=== PATIENT | female | born 1990 | race Caucasian/White ===

== ENCOUNTER → 2017-09-30 11:52 | Outpatient (CLI) | payer MEDICAID, SELFPAY ==
[2017-10-05 10:50] LABS: HPV Reflexed? NOT INDICATED
== END ==
PROVIDERS: Visit Provider Obstetrics & Gynecology
DX: Z12.4 Encounter for screening for malignant neoplasm of cervix (principal)
CPT/HCPCS: 88175; G0145

== ENCOUNTER → 2018-04-14 12:09 | Outpatient (CLI) | payer MEDICAID, SELFPAY ==
[2015-07-13 12:47] VITALS: BMI 25.6
[2018-04-14 16:51] LABS: Chlamydia Trachomatis by PCR Negative (Negative); Neisserai gonorrhoeae by PCR Negative (Negative); Probe Check PASS; Sample Adequacy Control PASS; Specimen Processing Control PASS
== END ==
PROVIDERS: Visit Provider Obstetrics & Gynecology
DX: Z11.3 Encounter for screening for infections with a predominantly sexual mode of transmission (principal)
CPT/HCPCS: 87491; 87591

== ENCOUNTER → 2018-04-28 10:20 | Outpatient (CLI) | payer MEDICAID, SELFPAY ==
[2015-07-13 12:47] VITALS: BMI 25.6
[2018-04-28 10:47] LABS: Absolute Lymphocyte Count 1.85 X10^3/ul (0.83-4.51); Absolute Neutrophil Count 5.9 X10^3/uL (2.0-7.7); Basophil# 0.01 X10^3/uL; Basophil% 0.1 % (0-1); Color, Urine Yellow (Yellow); Eosinophil# 0.06 X10^3/uL; Eosinophils% 0.7 % (0-5); Glucose, Dipstick Normal (Normal); Hematocrit 38.3 % (37-47); Hemoglobin 12.7 g/dl (12.0-15.0); Ketone-Dipstick Negative (Negative); Leukocyte Esterase-Dipstick Negative /ul (Negative); Lymphocyte # 1.85 X10^3/ul (4.0); Lymphocyte % 21.9 % (19-41); Mean Corp Hgb Conc 33.2 g/gl (32-36); Mean Corpuscular Hgb 28.2 pg (27.0-32.0); Mean Corpuscular Volume 84.9 fL (81-99); Mean Platelet Vol. 10.4 fl (6.2-12.0); Monocyte# 0.59 X10^3/uL; Neutrophil # 5.93 X10^3/uL (2.7-7.7); Neutrophil % 70.2 % (47-70); Nitrite-Dipstick Negative (Negative); Occult Blood-Urine Negative /ul (Negative); Platelet Count 267 K/mm3 (150-450); Protein-Dipstick Negative (Negative); RBC Distribution Width CV 14.5 % (11.6-14.6); RBC Distribution Width SD 45.4 fl (35.1-43.9); Red Blood Count 4.51 M/mm3 (4.2-5.4); Specific Gravity, Urine 1.005 (1.002-1.030); Urine Bilirubin Dipstick Negative (Negative); Urine Clarity Clear (Clear); Urine Urobilinogen Normal (Normal); White Blood Count 8.5 K/mm3 (4.4-11.0)
[2018-04-28 10:54] LABS: POSITIVE COUNT NO; POSITIVE DIFFERENTIAL NO; POSITIVE MORPHOLOGY NO
[2018-04-28 11:26] LABS: Thyroid Stim Hormone (TSH) 1.01 uIU/mL (0.358-3.74)
[2018-04-28 13:20] LABS: HIV - WCH Non-Reactive (Nonreactive); Rubella IgG 22.2 IU/mL
[2018-04-29 01:11] LABS: Prenatal RPR NONREACTIVE (NONREACTIVE)
[2018-04-29 11:12] LABS: HEPATITIS B SURFACE AG Negative (Negative); Hep C Antibodies <0.1 s/co ratio (0.0-0.9)
== END ==
PROVIDERS: Visit Provider Obstetrics & Gynecology
DX: Z34.81 Encounter for supervision of other normal pregnancy, first trimester (principal)
CPT/HCPCS: 36415; 81002; 84443; 85025; 86703; 86762; 86803; 87340

== ENCOUNTER → 2018-09-09 10:30 | Outpatient (CLI) | payer MEDICAID, SELFPAY ==
[2018-09-09 10:42] LABS: Hematocrit 34.5 % (37-47); Hemoglobin 11.6 g/dl (12.0-15.0); Mean Corp Hgb Conc 33.6 g/gl (32-36); Mean Corpuscular Hgb 29.9 pg (27.0-32.0); Mean Corpuscular Volume 88.9 fL (81-99); Mean Platelet Vol. 10.2 fl (6.2-12.0); Platelet Count 217 K/mm3 (150-450); RBC Distribution Width CV 13.2 % (11.6-14.6); RBC Distribution Width SD 42.8 fl (35.1-43.9); Red Blood Count 3.88 M/mm3 (4.2-5.4); White Blood Count 9.1 K/mm3 (4.4-11.0)
[2018-09-09 10:43] LABS: Scan Indicated on CBC? Y/N NO
[2018-09-09 11:05] LABS: Glucose Challenge Gest 1H 50g 92 mg/dL (70-140)
== END ==
PROVIDERS: Visit Provider Obstetrics & Gynecology
DX: Z34.83 Encounter for supervision of other normal pregnancy, third trimester (principal)
CPT/HCPCS: 36415; 82950; 85027; 86850

== ENCOUNTER → 2018-11-04 14:51 | Outpatient (CLI) | payer MEDICAID, SELFPAY ==
[2015-07-13 12:47] VITALS: BMI 25.6
== END ==
PROVIDERS: Visit Provider Obstetrics & Gynecology
DX: Z36.85 Encounter for antenatal screening for Streptococcus B (principal)
CPT/HCPCS: 87081

== ENCOUNTER 2018-11-26 00:35 | Inpatient (IN) | payer MEDICAID, SELFPAY ==
[2018-11-26 01:00] VITALS: BMI 27.7
[2018-11-26 01:33] LABS: Absolute Neutrophil Count 7.1 X10^3/uL (2.0-7.7); Basophil# 0.02 X10^3/uL; Basophil% 0.2 % (0-1); Eosinophil# 0.09 X10^3/uL; Eosinophils% 0.8 % (0-5); Hematocrit 37.7 % (37-47); Hemoglobin 13.1 g/dL (12.0-15.0); Lymphocyte % 25.5 % (19-41); Mean Corp Hgb Conc 34.7 g/dL (32-36); Mean Corpuscular Hgb 31.3 pg (27.0-32.0); Mean Platelet Vol. 11.7 fl (6.2-12.0); Monocyte# 0.64 X10^3/uL; NRBC Flagged by Analyzer 0 % (0-5); Neutrophil # 7.11 X10^3/uL (2.7-7.7); Neutrophil % 67.2 % (47-70); Platelet Count 204 K/mm3 (150-450); RBC Distribution Width CV 12.4 % (11.6-14.6); RBC Distribution Width SD 40.3 fl (35.1-43.9); Red Blood Count 4.19 M/mm3 (4.2-5.4); White Blood Count 10.6 K/mm3 (4.4-11.0)
[2018-11-26] MEDS: Oxytocin 30 units/NS 500 ml 30 UNITS/500 ML IV.SOLN 334 UNITS IV (02:30)
--- NOTE | 2018-11-26 02:47 | PCM.OPRPT ---
Vaginal Delivery Maternal Presentation: Active Labor Amniotic Membrane Rupture Type: Artificial Amniotic Fluid Description: Clear Final GEE: 11/30/18 Final GEE Source: US <20 weeks Gestational age: 39 Weeks and 3 Days Date of Procedure: 11/26/18 Pre-Operative Diagnosis: IUP Post-Operative Diagnosis: IUP Surgery/ Procedure Performed: Spontaneous Vaginal Delivery Type of Anesthesia: None Description of Procedure: Spontaneous vaginal delivery of a viable male with Apgars of 8/9 from an occiput anterior presentation with clear amniotic fluid and normal three-vessel placenta. No episiotomy or lacerations. Sponges okay. Delivery physician: Ino Plata MD. Presentation: Vertex Placental Delivery Description: Spontaneous Placenta Disposition: [facility] Cord Vessel Description: 3 Vessels Cord Entanglement: None Estimated Blood Loss: 250 cc Infant A gender: Male (1 minute): 8 (5 minute): 9 Episiotomy Description: None Laceration: None Medications given after delivery: IV Pitocin Complications: None
--- NOTE | 2018-11-26 02:49 | DCINST_ITS ---
Discharge Diet: No Restrictions Discharge Activity: May Shower, May Take a Tub Bath May resume sexual activity in: 4-6 weeks Additional Activity Instructions:: Nothing in the vagina for 4-6 weeks. You may return to work/school in 6 weeks. Call your doctor if you observe: Fever of 101 or Higher, Inability to urinate, Inability to have a bowel movement, Using more than one pad per hour Additional Instructions: If you experience any of the following, contact your healthcare provider. * Bleeding that soaks a pad every hour for 2 hours * Unrelieved incision or abdominal pain * Swelling, redness, discharge or bleeding from your incision or episiotomy site * Your incision begins to separate * Problems urinating (including inability to urinate or burning while urinating). * Visual changes * Severe headache * Flu-like symptoms * Pain or redness in one of both of your breasts * Pain, warmth, tenderness or swelling in your legs, especially the calf area * Frequent nausea and vomiting * Symptoms of depression or anxiety If you experience any of the following, call 911 or go to the nearest Emergency Room. * Chest pain * Problems breathing * Seizure activity * Partial or complete paralysis of a body part, slurred speech, weakness or drooping of the face, or a sudden inability to walk or hold your balance Allergies/Adverse Reactions: Allergies amoxicillin Allergy (Verified 11/26/18 01:01) Hives Sulfa (Sulfonamide Antibiotics) Allergy (Verified 11/26/18 01:01) Hives Medications to take at Discharge [id number]/Iron Fum/Folic/Docusate [ 19 Tablet] 1 each PO DAILY 04/12/13 Naproxen [Naprosyn] 1 - 2 tab PO Q8H PRN PRN #40 tablet 07/13/15 Senna/Docusate Sodium [Senokot-S] 1 - 2 tablet PO DAILY PRN PRN #60 tablet 07/13/15 Please Follow Up With: Palma Wang MD - [phone] When: Call to make an appointment with your doctor in 6 weeks. Primary Care Physician: Care Physician,No Primary [Primary Care Provider] - Test Results: Test results from this visit will be discussed in further detail at your follow- up appointment, if applicable.
[2018-11-26 04:35] VITALS: BP 135/77; PULSE 82; RESP 16; TEMP 36.9; O2SAT 98
[2018-11-26] MEDS: Ibuprofen 600 MG Tablet PO ×3 (06:56→21:06)
[2018-11-26 08:00] VITALS: BP 118/70; PULSE 80; RESP 17; TEMP 36.7; O2SAT 99
[2018-11-26 11:48] VITALS: BP 116/60; PULSE 78; RESP 17; TEMP 36.6; O2SAT 99
[2018-11-26 16:00] VITALS: BP 120/70; PULSE 74; RESP 17; TEMP 36.7; O2SAT 98
[2018-11-26 20:00] VITALS: BP 121/72; PULSE 73; RESP 16; TEMP 36.7
[2018-11-27 01:30] VITALS: BP 115/61; PULSE 67; RESP 16; TEMP 36.8
[2018-11-27 09:09] VITALS: BP 117/68; PULSE 78; RESP 16; TEMP 36.6; O2SAT 99
[2018-11-27] MEDS: Ibuprofen 600 MG Tablet PO (09:13)
--- NOTE | 2018-11-27 11:31 | PCM.PN.OB ---
Subjective: Patient without complaints. Breast-feeding going well. Ready to go home today. - Physical Exam Vital Signs Temp Pulse Resp BP Pulse Ox 97.8 F 78 16 117/68 99 11/27/18 09:09 11/27/18 09:09 11/27/18 09:09 11/27/18 09:09 11/27/18 09:09 Oxygen Delivery Method Room Air Weight: 166 lb 9.6 oz Body Mass Index (BMI) 27.7 Intake and Output for Last 24 Hours 11/25/18 11/26/18 11/27/18 23:59 23:59 23:59 Intake Total 500.0 / 500.0 Output Total 800 / 800 Balance -300.0 / -300.0 Medical Necessity - Tobacco Use Smoking Status: Never smoker Assessment/Plan Doing well day #1 status post routine spontaneous vaginal delivery. Will discharge to home with routine instructions.
[2018-11-27 12:50] VITALS: BP 114/64; PULSE 78; RESP 16; TEMP 36.7; O2SAT 99
== END 2018-11-27 12:50 | disposition home or self-care (01) | DRG 560 ==
PROVIDERS: Admitting Provider Obstetrics & Gynecology; Referring Provider Obstetrics & Gynecology; Visit Provider Obstetrics & Gynecology
DX: O80 Encounter for full-term uncomplicated delivery (principal); Z37.0 Single live birth; Z3A.39 39 weeks gestation of pregnancy
CPT/HCPCS: 59025; 59050; 85025; 86850; 86900; 86901; 99218; G0378

== ENCOUNTER → 2020-05-27 13:08 | Outpatient (CLI) | payer MEDICAID, SELFPAY ==
[2020-05-29 12:15] LABS: HPV APTIMA, High Risk Negative (Negative)
== END ==
PROVIDERS: Visit Provider Student in an Organized Health Care Education/Training Program
DX: Z12.4 Encounter for screening for malignant neoplasm of cervix (principal)
CPT/HCPCS: 87624; 88175; G0145

== ENCOUNTER → 2021-03-13 14:15 | Outpatient (CLI) | payer MEDICAID, SELFPAY ==
[2021-03-13 14:29] LABS: Color, Urine Yellow (Yellow); Glucose, Dipstick Normal (Normal); Ketone-Dipstick Negative (Negative); Leukocyte Esterase-Dipstick 500 /ul (Negative); Nitrite-Dipstick Negative (Negative); Occult Blood-Urine 150 /ul (Negative); Protein-Dipstick Negative (Negative); Urine Bilirubin Dipstick Negative (Negative); Urine Clarity Sl. Cloudy (Clear); Urine Urobilinogen Normal (Normal)
[2021-03-13 14:31] LABS: Absolute Lymphocyte Count 2.13 X10^3/uL (0.83-4.51); Absolute Neutrophil Count 5.6 X10^3/uL (2.0-7.7); Basophil# 0.03 X10^3/uL; Basophil% 0.4 % (0-1); Eosinophil# 0.12 X10^3/uL; Eosinophils% 1.4 % (0-5); Hematocrit 34.8 % (37-47); Hemoglobin 11.4 g/dL (12.0-15.0); Lymphocyte # 2.13 X10^3/ul (0.83-4.51); Lymphocyte % 25.4 % (19-41); Mean Corp Hgb Conc 32.8 g/dL (32-36); Mean Corpuscular Hgb 26.2 pg (27.0-32.0); Mean Platelet Vol. 11.5 fl (6.2-12.0); Monocyte# 0.53 X10^3/uL; Monocyte% 6.3 % (0-10); NRBC Flagged by Analyzer 0 % (0-5); Neutrophil # 5.57 X10^3/uL (2.7-7.7); Neutrophil % 66.3 % (47-70); Platelet Count 302 K/mm3 (150-450); RBC Distribution Width CV 16.7 % (11.6-14.6); RBC Distribution Width SD 49.2 fl (35.1-43.9); Red Blood Count 4.35 M/mm3 (4.2-5.4); White Blood Count 8.4 K/mm3 (4.4-11.0)
[2021-03-13 14:57] LABS: Thyroid Stim Hormone (TSH) 1.07 uIU/mL (0.358-3.74)
[2021-03-13 15:17] LABS: HIV - WCH Non-Reactive (Nonreactive); Hepatitis B Surface Antigen Non-Reactive (Nonreactive); Hepatitis C Antibody Non-Reactive (Nonreactive); Rubella IgG Reactive (Nonreactive); Syphilis Antibodies Non-reactive
[2021-03-17 22:06] LABS: Chlamydia By Nucleic Acid AMP Negative (Negative)
[2021-03-17 23:21] LABS: Gonococcus By Nucleic Acid AMP Negative (Negative)
== END ==
PROVIDERS: Visit Provider Obstetrics & Gynecology
DX: Z34.81 Encounter for supervision of other normal pregnancy, first trimester (principal)
CPT/HCPCS: 81002; 84443; 85025; 86703; 86762; 86780; 86803; 87086; 87088; 87340; 87491; 87591

== ENCOUNTER → 2021-07-23 | Outpatient (CLI) | payer MEDICAID, SELFPAY ==
[2021-07-23 11:40] LABS: Hemoglobin 11.5 g/dL (12.0-15.0); Mean Corp Hgb Conc 32.9 g/dL (32-36); Mean Corpuscular Volume 88.2 fL (81-99); Mean Platelet Vol. 10.5 fl (6.2-12.0); Platelet Count 243 K/mm3 (150-450); RBC Distribution Width CV 13.3 % (11.6-14.6); RBC Distribution Width SD 43.2 fl (35.1-43.9); Red Blood Count 3.97 M/mm3 (4.2-5.4); White Blood Count 8.4 K/mm3 (4.4-11.0)
[2021-07-23 11:46] LABS: Glucose Challenge Gest 1H 50g 86 mg/dL (70-140)
== END | disposition home or self-care (01) ==
PROVIDERS: Visit Provider Obstetrics & Gynecology
DX: Z34.83 Encounter for supervision of other normal pregnancy, third trimester (principal)
CPT/HCPCS: 36415; 82950; 85027; 86850

== ENCOUNTER → 2021-09-17 | Outpatient (CLI) | payer MEDICAID, SELFPAY | END | disposition home or self-care (01) | LOC: LABSPEC 15:19 | PROVIDERS: Visit Provider Obstetrics & Gynecology | DX: Z36.85 Encounter for antenatal screening for Streptococcus B (principal) | CPT/HCPCS: 87081 ==

== ENCOUNTER 2021-09-29 21:05 | Outpatient (CLI) | payer MEDICAID, SELFPAY ==
[2021-09-29 21:17] VITALS: BP 129/81; PULSE 84; TEMP 37.3; O2SAT 98; O2SAT 99
[2021-09-29 21:33] VITALS: PULSE 75; O2SAT 96
[2021-09-29 21:41] VITALS: BMI 27.8
[2021-09-29 21:53] LABS: Color, Urine Straw (Yellow); Glucose, Dipstick Normal (Normal); Ketone-Dipstick Negative (Negative); Leukocyte Esterase-Dipstick 25 /ul (Negative); Nitrite-Dipstick Negative (Negative); Occult Blood-Urine Negative /ul (Negative); Protein-Dipstick Negative (Negative); Urine Bilirubin Dipstick Negative (Negative); Urine Clarity Clear (Clear); Urine Urobilinogen Normal (Normal)
[2021-09-29 23:02] VITALS: BP 108/60; PULSE 72
--- NOTE | 2021-10-02 08:01 | OB.TRI.NOTE ---
HPI - General HPI Narrative ROSSY SANTOS, is a 31 F who presents at term with some contractions. She denies any leaking of fluid or bleeding. Good movement is noted. PFSH PFSH Home Medications vit 119-iron fum 29 mg-folic acid 1 mg-docusate 25 mg tablet 1 ea PO DAILY 04/12/13 [History Last Taken 11/25/18 13:00] Allergy/AdvReac Type Severity Reaction Status Date / Time amoxicillin Allergy Hives Verified 09/29/21 21:43 Sulfa (Sulfonamide Allergy Hives Verified 09/29/21 21:43 Antibiotics) Social History Smoking Status: Never smoker History Elective abortions Hx Para 2 Spontaneous abortions Hx # Term Pregnancies Ectopic pregnancies Hx # Pregnancies Multiple births # of living children NST FHR Rate Baby A NST Reactive:: Yes FHR Category:: Category I Assessment & Plan (1) False labor, antepartum: PLAN: 38+ week intrauterine with false labor. No change after monitoring for several hours. Reactive nonstress test. Labor discomfort subsided and patient discharged to home. Routine labor instructions given.
== END 2021-09-30 00:09 | disposition home or self-care (01) ==
LOC: WPOUT 21:08 → WP 21:08
PROVIDERS: Referring Provider Obstetrics & Gynecology; Visit Provider Obstetrics & Gynecology
DX: O47.1 False labor at or after 37 completed weeks of gestation (principal); Z3A.00 Weeks of gestation of pregnancy not specified
CPT/HCPCS: 59025; 59050; 81002; 99218; G0378

== ENCOUNTER 2021-10-14 11:30 | Inpatient (IN) | payer MEDICAID, SELFPAY ==
[2021-10-14] VITALS (15 sets, daily range): BP systolic 107–136; BP diastolic 54–88; PULSE 73–139; RESP 16; TEMP 36.2–37.3; O2SAT 96–99; BMI 27.4
[2021-10-14] MEDS: Lactated Ringers 1,000 ML 50 ML IV (11:46)
[2021-10-14 12:05] LABS: Absolute Lymphocyte Count 2.29 X10^3/uL (0.83-4.51); Absolute Neutrophil Count 6.1 X10^3/uL (2.0-7.7); Basophil# 0.02 X10^3/uL; Basophil% 0.2 % (0-1); Eosinophil# 0.05 X10^3/uL; Eosinophils% 0.6 % (0-5); Hematocrit 40.2 % (37-47); Hemoglobin 13.5 g/dL (12.0-15.0); Lymphocyte # 2.29 X10^3/ul (0.83-4.51); Lymphocyte % 25.6 % (19-41); Mean Corp Hgb Conc 33.6 g/dL (32-36); Mean Corpuscular Hgb 29.7 pg (27.0-32.0); Mean Corpuscular Volume 88.5 fL (81-99); Mean Platelet Vol. 11.4 fl (6.2-12.0); Monocyte# 0.49 X10^3/uL; Monocyte% 5.5 % (0-10); NRBC Flagged by Analyzer 0 % (0-5); Neutrophil # 6.08 X10^3/uL (2.7-7.7); Neutrophil % 67.8 % (47-70); Platelet Count 229 K/mm3 (150-450); RBC Distribution Width CV 13.2 % (11.6-14.6); RBC Distribution Width SD 42.9 fl (35.1-43.9); Red Blood Count 4.54 M/mm3 (4.2-5.4)
[2021-10-14] MEDS: Oxytocin 30 units/NS 500 ml 30 UNITS/500 ML IV.SOLN 334 UNITS IV (14:04)
--- NOTE | 2021-10-14 14:15 | HP.PCM_ITS ---
History and Physical Date of Admission: 10/14/21 ACOG ANTEPARTUM RECORD - HISTORY AND PHYSICAL (10/14/2021) Name: RAYNE SANTOS History of this : This is a 31 year old [id number] presents at 40 wks + 5 days gestation in early labor with cervix dilated 7 cm in the office. OB Physician: Yasmeen Crowell Ambia's Physician: Kayode ...................................................................... : 1990 Age: 31 Address: [address] [place] [address] Phone: (H) [phone] (O) [phone] Insurance Carrier: [facility] [employer] DEPT [phone] Emergency Contact: MERLENE SANTOS/ [phone] ...................................................................... Final GEE: 10/09/21 By Ultrasound: 10 weeks 0 days PARITY: (G-Total Pregnancies P-Fullterm,Premature,Induced AB,Spont AB, Ectopics, Multiple,Living) GEE CONFIRMATION: By LMP: 01/02/21 Final GEE: 10/09/21 OB PROBLEM LIST: A NEGATIVE RhoGAM at 28 wks Allergic to Amoxicillin and Sulfa Declines genetic and carrier screening EPDS = 9. States a little more fearful, and anxious. No epidural planned Spouse had a cousin with Down Syndrome ALLERGIES: Amoxicillin Rash NKDA Sulfa (Sulfonamide Antibiotics) Hives and/or rash MEDICATIONS: azelaic acid 15 % topical gel apply once daily to face 28 mg iron-800 mcg tablet One pill by mouth once a day SOCIAL HISTORY: Smoking - Never Alcohol Use - denies drinking Diet - balanced Diet Lifestyle - low stress lifestyle and Exercise - walking Employer - Homemaker Job Description - Illicit Drug Use - denies use of street drugs Sexual Activity - Residence - lives with Place of - [place] Spouse-Sig Other Name - Merlene Santos Spouse-Sig Other Occupation - Self-employed -- [employer] Spouse-Sig Other Phone No - [phone] Children Name(s) - Abrahan, (INGAW), Michelle 16' (SHM), Surjit 11/26/18 (MECHELLE) PRIOR DELIVERY HISTORY DEL DATE GEST LAB WT LB WT OZ TYPE ANES LABOR TX Apr 18 40 5 8 5 Vag Local No Jul 19 40 6 8 0 Vag None No Nov 21 39 4 8 10 Vag None No ANTEPARTUM FLOW CHART VISIT GE RTC FU F F MS U U DATE WK MD WKS HT PN HR M SS BP ED WT MS GL D EF ST __ ____ ___ __ __ ___ __ __ __ ___ __ __ __ ___ __ Oct JMW 6 38 V + + 110/76 0 165 - - 6+ 80 -1 05 Oct JMW 6 37 V + + 112/62 sl 169 - - S Sep JMW 1 38 V + + 110/74 0 167 - - 5 75 -2 Sep JMW 1 36 V + + 108/70 0 166 - - 4 75 -2 15 Sep JMW 1 36 V + + 120/70 0 167 - - 2+ 75 -2 07 Sep SHM 2 35 V + + 130/86 tr 135 ne ne September 02 JMW 2 32 + + 108/64 0 166 ne ne Jul 31 JMW 3 28 + + 108/62 sl 164 ne ne 16 Jun 25 JMW 4 24 + + 110/72 0 158 - - May 24 JMW 4 20 + + 110/66 0 156 - - 06 Apr 18 JMW 5 14 U+ 104/70 0 153 - - ANTEPARTUM NOTE(S): Oct 14 2021: Good FM, To L and D Oct 07 2021: Ctxs-occas, Good FM, Induce per request Oct 01 2021: ctx's, back pain, pelvic pressure, Induce per Request Sep 24 2021: Good FM Sep 17 2021: Good FM Sep 09 2021: Aug 13 2021: FM well Jul 23 2021: CBC, 1hgt, Good FM Jun 18 2021: Glucola Given and Good FM May 21 2021: doing well, US OK Apr 10 2021: Occ. mild nausea, no vomiting. Also constipation issues. COMPREHENSIVE ANTEPARTUM NOTE(S): Oct 14 2021: Rayne is here for her PNV at 40 w 5 d. Scheduled for an induction tomorrow. She states that she is tired and uncomfortable. She feels good FM. Rayne feels irregular mild ctx's and back pain. She denies spotting/LoF. No edema noted.. She desires cervical exam today. AW Oct 01 2021: Rayne is here for a pnv at 38/6. Good FM. No edema present. Occasional ctx's, back pain and pelvic pressure. No concerns expressed at this time. Desires cervix check. MK Sep 24 2021: Rayne is 37w6d here for PNV good FM no edema, C/O a mild stinging pain in the vaginal area. This pain occurs just occasionally. BR Sep 24 2021: H taken to OB. tkg Sep 17 2021: Rayne is 36w6d here for PNV good FM slight edema. GBS and LARC today. C/O a sharp pinching pain in her upper abdomen. States this was a few days ago. BR Sep 09 2021: NOB noted for 04/10/2021 continued: d ietary/caloric/water needs reviewed, along with recommended weight gain, limiting empty calories, limiting caffeine to one cup a day, and food safety. Rayne states that she understands all information provided during 45 minute nOB visit, and states that she has no questions following same. AW New Apr 10 2021: Rayne is here for her NOB visit prior to PNV with Dr. Plata. Mateus sheffield is a 31 year old with an GEE of 10/09/2021, current GA is 14 w 0 d. She resides with her , Merlene, and their three children. All of her children were delivered by . Past preganncy history updated. She was GBS+ with her first two pregnancies, but not with her third. Delivery without an epidural is planned at [facility], and s Apr 10 2021: Rayne shares that she has a hx of constipation, and this continues; she takes metamucil, occasional Miralax, drinks prune juice, takes Colace as a stool softener, and has tried rectal suppositories for hemorrhoids. Encouraged to discuss use of hemorrhoid suppository use with Dr. Plata today to ensure that it is safe for use. Also discussed increasing her dietary fiber, and making sure t Apr 10 2021: Rayne is a life long non-smoker and she denies use of drugs or ETOH. She denies hx of depression or anxiety; though she states that she feels more worried and anxious with this . EPDS today = 9. Her had a sister born with Down Syndrome. She declines genetic and carrier screening, consents signed as such. Apr 10 2021: Rayne takes an OTC vitamin and reports that she tolerates this well. She walks about 4 times a week, and plans to continue to do so. Lifting restrictions for discussed. Mar 13 2021: Rayne presents here today for Missed Menses appointment. 31 y.o. G 4 P 3 non-smoker with regular menses and LMP of 01-02-21 lasting her average of 5 days. UPT is positive today in our Office. Reports that she has occasional spotting for 1-2 days several weeks ago, with nothing since that time. Brief discussion of sensitive vaginal tissues and bleeding in . Presents here at 10 weeks toda Mar 13 2021: ok REVIEW OF SYSTEMS: GENERAL - Denies fever, or chills SKIN - Denies rash, new skin lesions, or change in moles EYES - Denies blurred vision, or change in visual acuity EARS - Denies ear pain, or difficulty hearing NOSE - Denies nasal congestion, discharge, or bleeding MOUTH - Denies sore throat, or difficulty swallowing NECK - Denies pain or swelling RESPIRATORY - Denies shortness of breath, cough, wheezing CARDIOVASCULAR - Denies palpitations, chest pain, orthopnea, PND, peripheral edema, syncope or claudication GASTROINTESTINAL - Denies nausea, vomiting, diarrhea, constipation, Denies abdominal pain, melena and or bright red blood GENITOURINARY - Denies dysuria, frequency of urination, urgency, or hesitancy MUSCULOSKELETAL - Denies joint or muscle pain, or back pain NEUROLOGICAL - Denies localized numbness, weakness, or tingling PSYCHIATRIC - Denies depression, anxiety, substance abuse or suicide attempts ENDOCRINE - Denies heat or cold intolerance, weight loss or gain, increasing thirst HEMATO-IMMUNOLOGIC - Denies easy bruising, bleeding, oral ulcerations or recurrent infections GENETICS SCREENING: Age 35+ years: No Thalassemia: No Neural Tube Defect: No Down Syndrome: Yes, 's cousin BECK-SACHS: No Sickle Cell Disease: No Hemophilia: No Musc. Dystrophy: No Cystic Fibrosis: No-declines screening Ruben Chorea: No Mental Retardation: No Fragile X: No Other genetic: No Other defects: No SABs/still births: No Drugs since LMP: colace INFECTION HISTORY: High risk AIDS: No High risk Hepatitis: No Exposed to TB: No Exposed to Herpes: No Rash/viral illness since LMP: No History of STD: No MENSTRUAL HISTORY: *Menses Amount/Duration: 4 daysMenses Regularity: RegularFrequency: monthlyMenarche (Age Onset): 14* PAST SUMMARY: PARITY: 1. Total Pregnancies............ 4 2. Full Term Pregnancies........ 3 3. Premature.................... 0 4. Abortions - Induced.......... 0 5. Abortions - Spontaneous...... 0 6. Ectopics..................... 0 7. Multiple Births.............. 0 8. Living Children.............. 3 PAST #1: Date of :.................. 04/12/13 Gestation Weeks:................ 40 Length of labor(hours):......... 5 Sex:............................ M Weight-lbs:............... 8 Weight-oz:................ 5 Type of Delivery:............... Vag Type of Anesthesia:............. Local Place of Delivery:.............. [place] Treatment of Labor?:.... No Comment: GBS+ PAST #2: Date of :.................. 07/13/15 Gestation Weeks:................ 40 Length of labor(hours):......... 6 Sex:............................ F Weight-lbs:............... 8 Weight-oz:................ 0 Type of Delivery:............... Vag Type of Anesthesia:............. None Place of Delivery:.............. [place] Treatment of Labor?:.... No Comment: GBS+ PAST #3: Date of :.................. 11/26/18 Gestation Weeks:................ 39 Length of labor(hours):......... 4 Sex:............................ M Weight-lbs:............... 8 Weight-oz:................ 10 Type of Delivery:............... Vag Type of Anesthesia:............. None Place of Delivery:.............. [place] Treatment of Labor?:.... No Comment: PHYSICAL EXAMINATION General Appearence: 31 yo female in no acute distress Vital Signs: AF, VSS Heart: RRR without rubs or gallops Lungs: CTA x 2 Breasts: deferred Abdomen: gravid Pelvis: Cervix: Presentation: cephalic Station: Fetus: Size: AGA Movement: present Heart: present LAB TEST(S) ORDERED SINCE:01/12/21 03/17/2021 CHLAMYDIA/GC GABRIELA APTIMA 03/15/2021 URINE CULTURE 03/13/2021 URINALYSIS, ROUTINE (DIPSTICK) 03/13/2021 THYROID STIM HORMONE (TSH) 03/13/2021 RUBELLA IGG 03/13/2021 T AND S-NO CHARGE W/PNP 03/13/2021 L509.8000 03/13/2021 HIV - [facility] 03/13/2021 HEPATITIS C ANTIBODY 03/13/2021 HEPATITIS B SURFACE ANTIGEN 03/13/2021 CBC W/DIFF, AUTOMATED 10/14/2021 TYPE AND SCREEN 10/14/2021 CBC W/DIFF, AUTOMATED 09/29/2021 URINALYSIS, ROUTINE (DIPSTICK) 09/20/2021 RULE OUT BETA STREP (GRP. B) 07/23/2021 GLUCOSE CHALLENGE GEST 1H 50G 07/23/2021 CBC-COMPLETE BLOOD CNT NO DIFF 07/23/2021 [id number] == ==== Order Observation Description Value Ref_Range A* Site == ==== Labor [facility]~[address] [place], [address]~ TYPE AND SCRE AB SCREEN GEL NEGATIVE ML CBC W/DIFF, AUT NOTE HERRON CBC W/DIFF, AUT WBC 9.0 K/mm3 4.4-11.0 ML CBC W/DIFF, AUT RBC 4.54 M/mm3 4.2-5.4 ML CBC W/DIFF, AUT HGB 13.5 g/dL 12.0-15.0 ML CBC W/DIFF, AUT HCT 40.2 37-47 ML CBC W/DIFF, AUT MCV 88.5 fL 81-99 ML CBC W/DIFF, AUT MCH 29.7 pg 27.0-32.0 ML CBC W/DIFF, AUT MCHC 33.6 g/dL 32-36 ML CBC W/DIFF, AUT RDW CV 13.2 11.6-14.6 ML CBC W/DIFF, AUT RDW SD 42.9 fl 35.1-43.9 ML CBC W/DIFF, AUT PLT 229 K/mm3 150-450 ML CBC W/DIFF, AUT MPV 11.4 fl 6.2-12.0 ML CBC W/DIFF, AUT NEUT% 67.8 47-70 ML CBC W/DIFF, AUT LY% 25.6 19-41 ML CBC W/DIFF, AUT MONO% 5.5 0-10 ML CBC W/DIFF, AUT EO% 0.6 0-5 ML CBC W/DIFF, AUT BASO% 0.2 0-1 ML CBC W/DIFF, AUT IG% 0.300 0.0-0.9 ML IG% - Immature Granulocytes (promyelocytes, myelocytes and metamyelocytes) > 1% indicates that a LEFT SHIFT is Present. CBC W/DIFF, AUT ABSOLUTE NEUT 6.1 X10 3/uL 2.0-7.7 ML CBC W/DIFF, AUT ABSOLUTE LYMPH 2.29 X10 3/uL 0.83-4.51 ML CBC W/DIFF, AUT NUCLEATED RBC 0 0-5 ML URINALYSIS, ROU NOTE HERRON URINALYSIS, ROU COLOR Straw Yellow ML URINALYSIS, ROU URINE CLARITY Clear Clear ML URINALYSIS, ROU GLUCOSE, UR Normal mg/dl Normal ML URINALYSIS, ROU BILIRUBIN URINE Negative mg/dL Negative ML URINALYSIS, ROU KETONE UR Negative mg/dl Negative ML URINALYSIS, ROU SP.GR. DIPSTX 1.010 1.002-1.030 ML URINALYSIS, ROU PH UR 7.0 5.0 - 8.0 ML URINALYSIS, ROU PROT DIPSTX Negative mg/dl Negative ML URINALYSIS, ROU UROBILI Normal mg/dl Normal ML URINALYSIS, ROU NITRITE Negative Negative ML URINALYSIS, ROU OCCULT BLOOD-UR Negative /ul Negative ML URINALYSIS, ROU LEUK ESTERASE 25 /ul Negative A ML RULE OUT BETA S NOTE HERRON [facility]~[address] [place], [address]~ [id number] AB SCREEN GEL NEGATIVE ML GLUCOSE CHALLEN NOTE HERRON GLUCOSE CHALLEN GLU GEST 50G 1H 86 mg/dL 70-140 ML CBC-COMPLETE BL NOTE HERRON CBC-COMPLETE BL WBC 8.4 K/mm3 4.4-11.0 ML CBC-COMPLETE BL RBC 3.97 M/mm3 4.2-5.4 L ML CBC-COMPLETE BL HGB 11.5 g/dL 12.0-15.0 L ML CBC-COMPLETE BL HCT 35.0 37-47 L ML CBC-COMPLETE BL MCV 88.2 fL 81-99 ML CBC-COMPLETE BL MCH 29.0 pg 27.0-32.0 ML CBC-COMPLETE BL MCHC 32.9 g/dL 32-36 ML CBC-COMPLETE BL RDW CV 13.3 11.6-14.6 ML CBC-COMPLETE BL RDW SD 43.2 fl 35.1-43.9 ML CBC-COMPLETE BL PLT 243 K/mm3 150-450 ML CBC-COMPLETE BL MPV 10.5 fl 6.2-12.0 ML CHLAMYDIA/GC NA NOTE HERRON CHLAMYDIA/GC NA CHLAMY,NUC ACID Negative Negative LCI CHLAMYDIA/GC NA GC BY NUC ACID Negative Negative LCI Performed at: = - [facility] [id number] [employer] Up Operator: Radha Lamar MD, Phone: [phone] URINE CULTURE NOTE HERRON PN N [facility]~[address] [place], [address]~ T AND AB SCREEN GEL NEGATIVE ML HEPATITIS C ANT NOTE HERRON HEPATITIS C ANT HEPATITIS C AB Non-Reactive Nonreactive ML Non Reactive: < 0.8 Equivocal: >/= 0.8 to < 1.0 Reactive: >/= 1.0 The CDC recommends that a reactive/equivocal HCV antibody result be followed up by the HCV Nucleic Acid Amplification test (209126) HEPATITIS B CAM NOTE HERRON HEPATITIS B CAM HEP B SURF AG Non-Reactive Nonreactive ML HIV - [facility] NOTE HERORN HIV - [facility] HIV Non-Reactive Nonreactive ML L509.8000 NOTE HERRON L509.8000 SYPHILIS ABS Non-reactive ML RUBELLA IGG NOTE HERRON RUBELLA IGG RUBELLA IGG Reactive Nonreactive ML Antibody Results Interpretation of Immune Status Non Reactive Presumed Non-Immune Equivocal Equivocal Reactive Presumed Immune THYROID STIM HO NOTE HERRON THYROID STIM HO TSH 1.07 uIU/mL 0.358-3.74 ML CBC W/DIFF, AUT NOTE HERRON CBC W/DIFF, AUT WBC 8.4 K/mm3 4.4-11.0 ML CBC W/DIFF, AUT RBC 4.35 M/mm3 4.2-5.4 ML CBC W/DIFF, AUT HGB 11.4 g/dL 12.0-15.0 L ML CBC W/DIFF, AUT HCT 34.8 37-47 L ML CBC W/DIFF, AUT MCV 80.0 fL 81-99 L ML CBC W/DIFF, AUT MCH 26.2 pg 27.0-32.0 L ML CBC W/DIFF, AUT MCHC 32.8 g/dL 32-36 ML CBC W/DIFF, AUT RDW CV 16.7 11.6-14.6 H ML CBC W/DIFF, AUT RDW SD 49.2 fl 35.1-43.9 H ML CBC W/DIFF, AUT PLT 302 K/mm3 150-450 ML CBC W/DIFF, AUT MPV 11.5 fl 6.2-12.0 ML CBC W/DIFF, AUT NEUT% 66.3 47-70 ML CBC W/DIFF, AUT LY% 25.4 19-41 ML CBC W/DIFF, AUT MONO% 6.3 0-10 ML CBC W/DIFF, AUT EO% 1.4 0-5 ML CBC W/DIFF, AUT BASO% 0.4 0-1 ML CBC W/DIFF, AUT IG% 0.200 0.0-0.9 ML IG% - Immature Granulocytes (promyelocytes, myelocytes and metamyelocytes) > 1% indicates that a LEFT SHIFT is Present. CBC W/DIFF, AUT ABSOLUTE NEUT 5.6 X10 3/uL 2.0-7.7 ML CBC W/DIFF, AUT ABSOLUTE LYMPH 2.13 X10 3/uL 0.83-4.51 ML CBC W/DIFF, AUT NUCLEATED RBC 0 0-5 ML URINALYSIS, ROU NOTE HERRON URINALYSIS, ROU COLOR Yellow Yellow ML URINALYSIS, ROU URINE CLARITY Sl. Cloudy Clear ML URINALYSIS, ROU GLUCOSE, UR Normal mg/dl Normal ML URINALYSIS, ROU BILIRUBIN URINE Negative mg/dL Negative ML URINALYSIS, ROU KETONE UR Negative mg/dl Negative ML URINALYSIS, ROU SP.GR. DIPSTX 1.010 1.002-1.030 ML URINALYSIS, ROU PH UR 7.0 5.0 - 8.0 ML URINALYSIS, ROU PROT DIPSTX Negative mg/dl Negative ML URINALYSIS, ROU UROBILI Normal mg/dl Normal ML URINALYSIS, ROU NITRITE Negative Negative ML URINALYSIS, ROU OCCULT BLOOD-UR 150 /ul Negative A ML URINALYSIS, ROU LEUK ESTERASE 500 /ul Negative A ML A NEGATIVE Group B Beta Streptococcus is not isolated. Below infection level. Mixed Gram Positive Organisms [place] Count 1000-10,000 A NEGATIVE == ==== Impression /Plan: 40 wks + 5 days intrauterine in labor. Preparations in progress for delivery.
--- NOTE | 2021-10-14 14:16 | EX.PCM.OBRPT ---
Vaginal Delivery Maternal Presentation Maternal Presentation: Active Labor Operative Information Date of Procedure: 10/14/21 Pre-Operative Diagnosis: IUP Post-Operative Diagnosis: IUP Surgery / Procedure Performed: Spontaneous Vaginal Delivery Type of Anesthesia: None Estimated Blood Loss: 250 cc Fluids Replaced: Crystalloid Findings Description of Procedure: Spontaneous vaginal delivery of a viable male with Apgars of 8/9 from an occiput anterior presentation with clear amniotic fluid and normal three-vessel placenta. No episiotomy or laceration. Sponges okay. Delivery physician: Ino Plata MD. Presentation: Vertex Amniotic Membrane Rupture Type: Artificial Amniotic Fluid Description: Clear Placental Delivery Description: Spontaneous Placenta Disposition: [facility] Cord Vessel Description: 3 Vessels Cord Entanglement: None A Gender: Male (1 minute): 8 (5 minute): 9 Post Vaginal Delivery Medications Given After Delivery: IV Pitocin Episiotomy Description: None Laceration: None Complication Complications: None
[2021-10-14] MEDS: Acetaminophen 500 MG Tablet 1000 MG PO (14:56)
[2021-10-14] MEDS: Ibuprofen 600 MG Tablet PO (21:13)
[2021-10-15 00:35] VITALS: BP 110/62; PULSE 70; RESP 16; TEMP 36.4; O2SAT 98
[2021-10-15] MEDS: Acetaminophen 500 MG Tablet 1000 MG PO (00:41)
[2021-10-15 04:40] VITALS: BP 105/59; PULSE 64; RESP 16; TEMP 36.1; O2SAT 96
[2021-10-15 07:44] VITALS: BP 111/61; PULSE 76; RESP 18; TEMP 36.1; O2SAT 100
--- NOTE | 2021-10-15 09:21 | PCM.PN.OB ---
Subjective Subjective Patient without complaints. Breast-feeding going well. Wants to go home if baby is able to go. Objective Data Objective Data Vital Signs: Vital Signs Temp Pulse Resp BP Pulse Ox O2 Del Method 97.0 F L 76 18 111/61 100 Room Air 10/15/21 07:44 10/15/21 07:44 10/15/21 07:44 10/15/21 07:44 10/15/21 07:44 10/15/21 07:44 Oxygen Delivery Method Room Air Weight: 165 lb Body Mass Index (BMI) 27.4 Intake & Output: Intake and Output for Last 24 Hours 10/13/21 10/14/21 10/15/21 23:59 23:59 23:59 Intake Total 1111.67 / 1111.67 Output Total 1800 / 1800 Balance -688.33 / -688.33 Lab / Micro Data Result Diagrams: 10/14/21 11:45 Labs: Laboratory Results - last 24 hr 10/14/21 11:45: WBC 9.0, RBC 4.54, Hgb 13.5, Hct 40.2, MCV 88.5, MCH 29.7, MCHC 33.6, RDW Std Deviation 42.9, RDW Coeff of Marti 13.2, Plt Count 229, MPV 11.4, Immature Gran % (Auto) 0.300, Neut % (Auto) 67.8, Lymph % (Auto) 25.6, [place] % (Auto) 5.5, Eos % (Auto) 0.6, Baso % (Auto) 0.2, Absolute Neuts (auto) 6.1, Absolute Lymphs (auto) 2.29, Nucleated RBC % 0 10/14/21 11:45: Blood Type A NEGATIVE, Antibody Screen NEGATIVE 10/14/21 20:55: Screen NEGATIVE, Baby's Blood Type A POSITIVE, Baby's GUILLERMO NEGATIVE Assessment & Plan (1) Spontaneous vaginal delivery: PLAN: Plan Doing well day #1 status post routine spontaneous vaginal delivery. Will discharge to home with routine instructions.
--- NOTE | 2021-10-15 09:22 | DCINST_ITS ---
Discharge Instructions Diet Discharge Diet: No restrictions Activity Discharge Activity: May Drive (In 1 to 2 days if not taking narcotic pain medication), May Shower and May Take a Tub Bath May resume sexual activity in: 4-6 weeks Additional Activity Instructions:: Nothing in the vagina for 4-6 weeks. You may return to work/school in 6 weeks. Dressing / Incision Call your doctor if you observe: Fever of 101 or Higher, Inability to urinate, Inability to have a bowel movement and Using more than 1 pad per hour Follow Up Care Please Follow Up With: Tanner Mendoza MD When: Call [phone] to make an appointment with your doctor in 6 weeks. Test Results: Test results from this visit will be discussed in further detail at your follow- up appointment, if applicable. Discharge Plan Admission Admit Date/Time: 10/14/21 11:30 Primary Reason for Your Visit: Spontaneous Vaginal Delivery Attending Provider: Ino Plata Primary Care Provider: Care Physician,Micki Primary Discharge Orders/Prescriptions Prescriptions: No Action [id number] fum-folic acid-dss 1 EACH tablet 1 ea PO DAILY Referrals / Follow Up: Care Physician,No Primary [Primary Care Provider] - Disposition Disposition (needs filled in before D/C Order can be placed): Home, Self Care
[2021-10-15 11:55] VITALS: BP 100/57; PULSE 68; RESP 18; TEMP 36.1; O2SAT 96
[2021-10-15] MEDS: Ibuprofen 600 MG Tablet PO (12:03)
--- NOTE | 2021-10-15 12:21 | NURSING ---
Pt to call [facility] to make 6 week follow up appointment.
== END 2021-10-15 15:55 | disposition home or self-care (01) | DRG 560 ==
PROVIDERS: Admitting Provider Obstetrics & Gynecology; Visit Provider Obstetrics & Gynecology
DX: O80 Encounter for full-term uncomplicated delivery (principal); Z37.0 Single live birth; Z3A.40 40 weeks gestation of pregnancy; Z87.59 Personal history of other complications of pregnancy, childbirth and the puerperium
CPT/HCPCS: 59025; 59050; 85025; 85461; 86850; 86900; 86901; 90384; 99218; J7120; G0378; J2790